=== PATIENT | male | born 1990 | race Caucasian/White ===

== ENCOUNTER 2018-02-24 12:51 | Emergency (ER) | payer SELFPAY ==
--- NOTE | 2018-02-24 14:26 | ER ---
Nurse's Notes [facility] Name: Akhil Serna Age: 27 yrs Sex: Male : 1990 Arrival Date: 02/24/2018 Time: 12:54 Bed 9 Private MD: Diagnosis: Rash and other nonspecific skin eruption Presentation: 02/24 12:55 Transition of care: patient was not received from another setting of care. Onset of sg symptoms was February 24, 2018. Risk Assessment: Do you want to hurt yourself or someone else? Patient reports no desire to harm self or others. Initial Sepsis Screen: Does the patient meet any 2 criteria? No. Patient's initial sepsis screen is negative. Does the patient have a suspected source of infection? No. Patient's initial sepsis screen is negative. Care prior to arrival: None. 12:55 Method Of Arrival: Ambulatory sg 13:07 Presenting complaint: Patient states: Was burning brush, and i think i got into some sg sumac, now i have a red itchy rash in areas all over my body, have been taking benadryl and calamine lotion daily but no relief. 13:07 Acuity: SHIRA 4 sg Historical: - Allergies: 13:03 No Known Allergies; sg - Home Meds: 13:10 None [Active]; sg - PSHx: 13:10 Brain; sg 13:10 Appendectomy; sg - Immunization history:: Adult Immunizations up to date. - Social history:: Smoking status: Patient/guardian denies using tobacco. - Ebola Screening: : Patient negative for fever greater than or equal to 101.5 degrees Fahrenheit, and additional compatible Ebola Virus Disease symptoms Patient denies exposure to infectious person Patient denies travel to an Ebola-affected area in the 21 days before illness onset No symptoms or risks identified at this time. Screenin:43 Abuse screen: Denies threats or abuse. Denies injuries from another. Nutritional iw screening: No deficits noted. Tuberculosis screening: No symptoms or risk factors identified. Fall Risk None identified. Assessment: 13:42 General: Appears in no apparent distress. Behavior is calm, cooperative. Pain: Denies iw pain. Neuro: Level of Consciousness is awake, alert, obeys commands, Oriented to person, place, time, Moves all extremities. Full function. Cardiovascular: Patient's skin is warm and dry. Respiratory: Respiratory effort is even, unlabored, Respiratory pattern is regular, symmetrical. Derm: Rash noted that is itchy, on face, chest, abdomen, right leg and left leg. Musculoskeletal: Range of motion: intact in all extremities. Vital Signs: 13:03 BP 118 / 68; Pulse 59; Resp 17 S; Temp 98.7; Pulse Ox 100% on R/A; Weight 92.99 kg; sg Height 5 ft. 8 in. (172.72 cm); Pain 6/10; 13:03 Body Mass Index 31.17 (92.99 kg, 172.72 cm) ED Course: 12:54 Patient arrived in ED. mr 12:55 Arm band placed on. sg 13:01 Triage completed. sg 13:13 [facility] rh1 13:13 Jann Martinez MD is Attending Physician. rh1 13:24 Adriana Robles RN is Primary Nurse. iw 13:45 Patient has correct armband on for positive identification. iw 14:32 No provider procedures requiring assistance completed. Patient did not have IV access iw during this emergency room visit. Administered Medications: No medications were administered Outcome: 14:25 Discharge ordered by MD. rh1 14:32 Discharged to home ambulatory, with family. iw 14:32 Condition: good 14:32 Discharge instructions given to patient, family, Instructed on discharge instructions, follow up and referral plans. medication usage, Demonstrated understanding of instructions, follow-up care, medications, Prescriptions given X 2. 14:33 Patient left the ED. em Signatures: Jc Verduzco RN RN Anabel Rod, [place], PIERCING MACHINE OPERATOR PIERCING MACHINE OPERATOR em Adriana Robles RN RN iw Rhiannon Mandujano NP SUPERVISOR STITCHING DEPARTMENT rh1 Corrections: (The following items were deleted from the chart) 13:04 12:55 Presenting complaint: Patient states: Left thumb swelling, developed a blister on sg the tip of the thumb under the thumbnail, is blackened that is getting larger sg 13:04 12:55 Acuity: SHIRA 3 [facility] 13:04 13:01 Note Keflex, on day 6 of the treatment [facility] 13:09 13:03 BP 130 / 63; Pulse 87bpm; Resp 16bpm; Pulse Ox 100% RA; Temp 97.7F; 58.97 kg sg Reported; Height 5 ft. 2 in.; BMI: 23.7; Pain 11/04; 13:03 PMHx: Hypertension; sg 13:03 PMHx: Chrons; [facility] 13:03 PMHx: Arthritis; [facility] 13:03 PSHx: Appendectomy; sg sg
--- NOTE | 2018-02-24 14:26 | EDPHYS ---
Physician Documentation [facility] Name: Akhil Serna Age: 27 yrs Sex: Male : 1990 Arrival Date: 02/24/2018 Time: 12:54 Bed 9 Private MD: ED Physician Jann Martinez HPI: 02/24 13:42 This 27 yrs old Male presents to ER via Ambulatory with complaints of Rash. rh1 13:42 The patient's rash thought to be caused by Contact allergy. The rash is located on the rh1 body diffusely. The rash can be described as erythematous, macular. Onset: The symptoms/episode began/occurred 3 day(s) ago. Associated signs and symptoms: Pertinent positives: itching, Pertinent negatives: burning sensation, difficulty breathing, fever, nausea, Pain swelling of lips, swelling of throat, swelling of tongue, vomiting, wheezing. Severity of symptoms: At their worst the symptoms were moderate in the emergency department the symptoms are unchanged. The patient has experienced a previous episode. The patient has not recently seen a physician. Reports he was working at [employer], covered in [employer]. He began with itching between fingers, then right elbow and left eye/face, which has now spread diffusely. He is using OTC benadryl and calamine lotion with minimal relief.. Historical: - Allergies: 13:03 No Known Allergies; sg - Home Meds: 13:10 None [Active]; sg - PSHx: 13:10 Brain; sg 13:10 Appendectomy; sg - Immunization history:: Adult Immunizations up to date. - Social history:: Smoking status: Patient/guardian denies using tobacco. - Ebola Screening: : Patient negative for fever greater than or equal to 101.5 degrees Fahrenheit, and additional compatible Ebola Virus Disease symptoms Patient denies exposure to infectious person Patient denies travel to an Ebola-affected area in the 21 days before illness onset No symptoms or risks identified at this time. ROS: 13:42 Constitutional: Negative for fever rh1 13:42 Cardiovascular: Negative for chest pain. 13:42 Respiratory: Negative for cough, shortness of breath. 13:42 Abdomen/GI: Negative for nausea and vomiting. 13:42 Skin: Positive for rash. 13:42 Neuro: Negative for altered mental status. 13:42 All other systems are negative. Exam: 13:42 Constitutional: This is a well developed, well nourished patient who is awake, alert, rh1 and in no acute distress. Head/Face: Normocephalic, atraumatic. Neck: Trachea midline, and no cervical lymphadenopathy. Supple, full range of motion without nuchal rigidity. No Meningismus. Cardiovascular: Regular rate and rhythm with a normal S1 and S2. No gallops, murmurs, or rubs. No JVD. No pulse deficits. Respiratory: Lungs have equal breath sounds bilaterally, clear to auscultation. No rales, rhonchi or wheezes noted. No increased work of breathing. Abdomen/GI: Soft, non-tender, with normal bowel sounds. No distension. No guarding or rebound. No evidence of tenderness throughout. MS/ Extremity: Pulses equal, no cyanosis. Neurovascular intact. Full, normal range of motion. 13:42 Skin: rash a moderate rash is noted, rash can be described as erythematous, macular, and is diffusely located. 13:42 Neuro: Orientation: is normal, to person, place \T\ time. Mentation: is normal, lucid, able to follow commands, Motor: is normal, moves all fours, Gait: is steady, at a normal pace, without difficulty. Vital Signs: 13:03 BP 118 / 68; Pulse 59; Resp 17 S; Temp 98.7; Pulse Ox 100% on R/A; Weight 92.99 kg; sg Height 5 ft. 8 in. (172.72 cm); Pain 6/10; 13:03 Body Mass Index 31.17 (92.99 kg, 172.72 cm) MDM: 13:42 Patient medically screened. rh1 14:24 Data reviewed: vital signs, nurses notes, and as a result, I will discharge patient. rh1 Data interpreted: Pulse oximetry: on room air is 100 %. Interpretation: normal. Counseling: I had a detailed discussion with the patient and/or guardian regarding: the historical points, exam findings, and any diagnostic results supporting the discharge/admit diagnosis, the need for outpatient follow up, a family practitioner, to return to the emergency department if symptoms worsen or persist or if there are any questions or concerns that arise at home. Administered Medications: No medications were administered Disposition: 18:34 Co-signature as Attending Physician, Jann Martinez MD. Disposition: 09/30/18 14:25 Discharged to Home. Impression: Rash and other nonspecific skin eruption. - Condition is Stable. - Discharge Instructions: Contact Dermatitis, Rash. - Prescriptions for Benadryl 25 mg Oral Capsule - take 1 capsule by ORAL route every 6 hours As needed; 30 tablet. Pepcid 20 mg Oral Tablet - take 1 tablet by ORAL route every 12 hours for 5 days; 10 tablet. Prednisone 20 mg Oral Tablet - take 3 tablet by ORAL route once daily for 5 days; 15 tablet. - Medication Reconciliation Form, Thank You Letter, Antibiotic Education, Prescription Opioid Use form. - Follow up: Private Physician; When: 1 - 2 days; Reason: Recheck today's complaints, Continuance of care, Re-evaluation by your physician. Follow up: Emergency Department; When: As needed; Reason: Fever > 102 F, If symptoms return, Trouble breathing, Worsening of condition. - Problem is new. - Symptoms have improved. Signatures: Jc Verduzco RN RN sg Morro Stock, OVERNIGHT ASSOCIATE OVERNIGHT ASSOCIATE em Rhiannon Mandujano NP SALESPERSON SEWING MACHINES rh1 Jann Martinez MD MD Corrections: (The following items were deleted from the chart) 13:10 13:03 PMHx: Hypertension; sg sg 13:10 13:03 PMHx: Chrons; sg sg 13:10 13:03 PMHx: Arthritis; sg sg 13:10 13:03 PSHx: Appendectomy; sg 14:23 13:42 Reports he was working at [employer], covered in [employer]. He began rh1 with itching between fingers, then right elbow and left eye/face, which has now spread diffusely. . rh1 14:33 14:25 02/24/2018 14:25 Discharged to Home. Impression: Rash and other nonspecific skin em eruption. Condition is Stable. Forms are Medication Reconciliation Form, Thank You Letter, Antibiotic Education, Prescription Opioid Use. Follow up: Private Physician; When: 1 - 2 days; Reason: Recheck today's complaints, Continuance of care, Re-evaluation by your physician. Follow up: Emergency Department; When: As needed; Reason: Fever > 102 F, If symptoms return, Trouble breathing, Worsening of condition. Problem is new. Symptoms have improved. rh1
== END 2018-02-24 14:33 | disposition home or self-care (01) ==
LOC: ER 12:51
DX: R21 Rash and other nonspecific skin eruption (principal)
CPT/HCPCS: 99282

== ENCOUNTER 2018-04-06 15:30 | Emergency (ER) | payer SELFPAY ==
[2018-04-06] MEDS ORDERED: TETANUS & DIPHTHERIA TOX,ADULT 0.5 ML VIAL ONE (16:15)
--- NOTE | 2018-04-06 16:27 | ER ---
Nurse's Notes [facility] Name: Akhil Serna Age: 27 yrs Sex: Male : 1990 Arrival Date: 04/06/2018 Time: 15:33 Bed 13 Private MD: Diagnosis: Cellulitis of left finger-Left Middle Presentation: 04/06 15:54 Presenting complaint: Patient states: "I was working and a crab got my finger about 2 aa5 days ago". Pt c/o redness and swelling to left middle finger. Transition of care: patient was not received from another setting of care. Onset of symptoms was March 2018. Risk Assessment: Do you want to hurt yourself or someone else? Patient reports no desire to harm self or others. Initial Sepsis Screen: Does the patient meet any 2 criteria? No. Patient's initial sepsis screen is negative. Does the patient have a suspected source of infection? No. Patient's initial sepsis screen is negative. Care prior to arrival: None. 15:54 Method Of Arrival: Ambulatory aa5 15:54 Acuity: SHIRA 4 aa5 Historical: - Allergies: 15:55 No Known Allergies; aa5 - PMHx: 15:55 None; aa5 - PSHx: 15:55 Appendectomy; Brain; aa5 - Immunization history:: Last tetanus immunization: unknown. - Social history:: Smoking status: Patient uses tobacco products, smokes one-half pack cigarettes per day. - Ebola Screening: : No symptoms or risks identified at this time. Screenin:24 Abuse screen: Denies threats or abuse. Denies injuries from another. Nutritional aj screening: No deficits noted. Tuberculosis screening: No symptoms or risk factors identified. Fall Risk None identified. Assessment: 16:24 General: Appears in no apparent distress. comfortable, Behavior is calm, cooperative, aj appropriate for age. Pain: Complains of pain in dorsal aspect of middle phalanx of left middle finger. Neuro: Level of Consciousness is awake, alert, obeys commands, Oriented to person, place, time, situation, Appropriate for age. Respiratory: Airway is patent Respiratory effort is even, unlabored, Respiratory pattern is regular, symmetrical. Derm: Skin is intact, is healthy with good turgor, Skin is pink, warm \\T\\ dry. normal, Bruising that is dark purple, on dorsal aspect of middle phalanx of left middle finger. Musculoskeletal: Swelling present in dorsal aspect of middle phalanx of left middle finger. Vital Signs: 15:55 BP 117 / 66; Pulse 60; Resp 18 S; Temp 98.4(TE); Pulse Ox 98% on R/A; Weight 97.98 kg aa5 (R); Height 5 ft. 8 in. (172.72 cm) (R); Pain 3/10; 15:55 Body Mass Index 32.84 (97.98 kg, 172.72 cm) aa5 ED Course: 15:33 Patient arrived in ED. rg4 15:53 Arm band placed on. aa5 15:55 Triage completed. aa5 15:56 Derrick Jarquin PA is PHCP. cp 15:56 Jann Martinez MD is Attending Physician. cp 16:01 Tati Chand, RN is Primary Nurse. aj 16:24 Patient has correct armband on for positive identification. aj 16:24 No provider procedures requiring assistance completed. Patient did not have IV access aj during this emergency room visit. Administered Medications: 16:09 Drug: Tetanus-Diphtheria Toxoid Adult 0.5 ml {Commodity Director: [employer]. Exp: aj 05/15/2020. Lot #: [id number]. } Route: IM; Site: right deltoid; 16:34 Follow up: Response: No adverse reaction aj Outcome: 16:26 Discharge ordered by . cp 16:34 Discharged to home ambulatory, with family. aj 16:34 Condition: good 16:34 Discharge instructions given to patient, Instructed on discharge instructions, follow up and referral plans. medication usage, Demonstrated understanding of instructions, follow-up care, medications, Prescriptions given X 2. 16:35 Patient left the ED. aj Signatures: Tati Chand, RN RN Melonie Streeter RN RN aa5 Derrick Jarquin PA PA cp Garcia, Rubi rg4 Corrections: (The following items were deleted from the chart) 16:28 16:24 Pain: Complains of pain in dorsal aspect of middle phalanx of right middle finger aj and dorsal aspect of proximal phalanx of right middle finger aj 16:28 16:24 Derm: Skin is intact, is healthy with good turgor, Skin is pink, warm \\T\\ dry. aj normal, Bruising that is dark purple, on dorsal aspect of middle phalanx of right middle finger aj 16:28 16:24 Musculoskeletal: Swelling present in dorsal aspect of middle phalanx of right aj middle finger aj
--- NOTE | 2018-04-06 16:27 | EDPHYS ---
Physician Documentation [facility] Name: Akhil Serna Age: 27 yrs Sex: Male : 1990 Arrival Date: 04/06/2018 Time: 15:33 Bed 13 Private MD: ED Physician Jann Martinez HPI: 04/06 16:06 This 27 yrs old Male presents to ER via Ambulatory with complaints of Finger cp Injury. 16:06 The patient or guardian reports injury, pain, swelling, tenderness. The complaints cp affect the dorsal aspect middle phalanx right middle finger. Context: resulted from claw of crab. Onset: The symptoms/episode began/occurred 2 day(s) ago. Associated signs and symptoms: Pertinent negatives: cyanosis distally, fever, numbness distally. Severity of symptoms: in the emergency department the symptoms are actually worse. Historical: - Allergies: 15:55 No Known Allergies; aa5 - PMHx: 15:55 None; aa5 - PSHx: 15:55 Appendectomy; Brain; aa5 - Immunization history:: Last tetanus immunization: unknown. - Social history:: Smoking status: Patient uses tobacco products, smokes one-half pack cigarettes per day. - Ebola Screening: : No symptoms or risks identified at this time. ROS: 16:12 Eyes: Negative for injury, pain, redness, and discharge. cp 16:12 Constitutional: Negative for body aches, chills, fever, poor PO intake. 16:12 ENT: Negative for drainage from ear(s), ear pain, sore throat, difficulty swallowing, difficulty handling secretions. 16:12 Cardiovascular: Negative for chest pain, palpitations. 16:12 Respiratory: Negative for cough, shortness of breath, wheezing. 16:12 Abdomen/GI: Negative for abdominal pain, nausea, vomiting, and diarrhea, constipation, black/tarry stool, rectal bleeding. 16:12 Neuro: Negative for numbness, tingling. 16:12 All other systems are negative. Exam: 16:15 Head/Face: Normocephalic, atraumatic. cp 16:15 Constitutional: The patient appears in no acute distress, alert, awake, non-toxic, well developed, well nourished. 16:15 Eyes: Periorbital structures: appear normal, Conjunctiva: normal, no exudate, no injection, Sclera: no appreciated abnormality, Lids and lashes: appear normal, bilaterally. 16:15 ENT: External ear(s): are unremarkable, Nose: is normal, Mouth: is normal, Posterior pharynx: is normal. 16:15 Chest/axilla: Inspection: normal. 16:15 Cardiovascular: Rate: normal. 16:15 Respiratory: the patient does not display signs of respiratory distress, Respirations: normal, no use of accessory muscles, no retractions, no splinting, no tachypnea. 16:15 Abdomen/GI: Inspection: abdomen appears normal. Vital Signs: 15:55 BP 117 / 66; Pulse 60; Resp 18 S; Temp 98.4(TE); Pulse Ox 98% on R/A; Weight 97.98 kg aa5 (R); Height 5 ft. 8 in. (172.72 cm) (R); Pain 3/10; 15:55 Body Mass Index 32.84 (97.98 kg, 172.72 cm) aa5 MDM: 15:57 Patient medically screened. cp 16:20 Differential diagnosis: tendonitis, cellulitis, abscess. cp 16:25 Data reviewed: vital signs, nurses notes, and as a result, I will discharge patient. cp 16:25 Counseling: I had a detailed discussion with the patient and/or guardian regarding: the cp historical points, exam findings, and any diagnostic results supporting the discharge/admit diagnosis, the need for outpatient follow up, a family practitioner, to return to the emergency department if symptoms worsen or persist or if there are any questions or concerns that arise at home. Administered Medications: 16:09 Drug: Tetanus-Diphtheria Toxoid Adult 0.5 ml {Res Counselor: [employer]. Exp: aj 05/15/2020. Lot #: [id number]. } Route: IM; Site: right deltoid; 16:34 Follow up: Response: No adverse reaction kenney Disposition: 04/07 11:41 Co-signature as Attending Physician, Jann Martinez MD. thang Disposition: 04/06/18 16:26 Discharged to Home. Impression: Cellulitis of left finger - Left Middle. - Condition is Stable. - Discharge Instructions: Cellulitis, Adult. - Prescriptions for Bactrim DS 800- 160 mg Oral Tablet - take 1 tablet by ORAL route every 12 hours for 10 days; 20 tablet. Doxycycline Monohydrate 100 mg Oral Tablet - take 1 tablet by ORAL route every 12 hours for 10 days; 20 tablet. - Medication Reconciliation Form, Thank You Letter, Antibiotic Education, Prescription Opioid Use form. - Follow up: Private Physician; When: 2 - 3 days; Reason: Wound Recheck. Signatures: Tati Chand RN Melonie Brunner RN RN aa5 Derrick Jarquin PA PA cp Jann Martinez MD MD gs Corrections: (The following items were deleted from the chart) 04/06 16:24 16:15 Musculoskeletal/extremity: Extremities: grossly normal except: noted in the cp dorsal aspect middle phalanx left middle finger: erythema, pain, swelling, noted superficial wound, There is no evidence of decreased ROM, drainage, ROM: intact distally right middle finger, Perfusion: the extremity is normally perfused throughout, Sensation intact. cp 16:25 16:12 Skin: Positive for discoloration, erythema, swelling, of the dorsal aspect middle cp phalanx right middle finger, Negative for abscesses, cp 16:35 16:26 04/06/2018 16:26 Discharged to Home. Impression: Cellulitis of left finger - Left aj Middle. Condition is Stable. Forms are Medication Reconciliation Form, Thank You Letter, Antibiotic Education, Prescription Opioid Use. Follow up: Private Physician; When: 2 - 3 days; Reason: Wound Recheck. cp
== END 2018-04-06 16:35 | disposition home or self-care (01) ==
LOC: ER 15:30
DX: L03.012 Cellulitis of left finger (principal); Z23 Encounter for immunization; X58.XXXA Exposure to other specified factors, initial encounter; F17.210 Nicotine dependence, cigarettes, uncomplicated
CPT/HCPCS: 90714; 99283

== ENCOUNTER 2018-04-08 19:37 | Emergency (ER) | payer SELFPAY ==
[2018-04-08] MEDS ORDERED: NA CHLORIDE 0.9% 1,000 ML ONE (20:45)
[2018-04-08] MEDS ORDERED: VANCOMYCIN 1 GM/250 ML BAG ONE (20:46)
--- NOTE | 2018-04-08 20:49 | RAD REPORT ---
EXAM DESCRIPTION: RAD - Hand Left 2 View - 04/08/2018 8:41 pm CLINICAL HISTORY: Left hand pain status post injury FINDINGS: No fracture or dislocation is seen. A limited two-view series was obtained
[2018-04-08 21:11] LABS: Potassium 3.7 mmol/L (3.5-5.1)
[2018-04-08 21:37] LABS: Absolute Lymphocytes (CBC) 2.6 K/uL (0.7-4.9); Absolute Monocytes 0.8 K/uL (0.1-1.3); Absolute Neutrophil 4.5 K/uL (1.8-8.0); Basophils % 0.9 % (0-1.3); Eosinophils % 2.7 % (0-4.4); Hematocrit 45.4 % (39.6-49.0); Lymphocytes % 31.6 % (15.3-44.8); MCH 30.9 pg (27.0-35.0); MCV 90.8 fL (80-100); MPV 8.7 fL (7.6-11.3); Monocytes % 9.9 % (3.3-12.3)
--- NOTE | 2018-04-08 23:08 | ER ---
Nurse's Notes [facility] Name: Akhil Serna Age: 27 yrs Sex: Male : 1990 Arrival Date: 04/08/2018 Time: 19:39 Bed 7 Private MD: Diagnosis: Cellulitis of left finger Presentation: 04/08 19:46 Presenting complaint: Patient states: He was seen here on Sunday because he had been aj1 pinched by a crab, and the area was red and swollen. He got a tetanus shot and 2 antibiotics. Yesterday he noticed a "blood blister" form on the finger and was concerned. Left middle finger appears red and swollen. Transition of care: patient was not received from another setting of care. Onset of symptoms was April 08, 2018. Risk Assessment: Do you want to hurt yourself or someone else? Patient reports no desire to harm self or others. Initial Sepsis Screen: Does the patient meet any 2 criteria? No. Patient's initial sepsis screen is negative. Does the patient have a suspected source of infection? Yes: Skin breakdown/wound. Care prior to arrival: None. 19:46 Method Of Arrival: [facility] 19:46 Acuity: SHIRA 3 aj1 Triage Assessment: 19:48 General: Appears in no apparent distress. comfortable, Behavior is calm, cooperative, aj1 appropriate for age. Pain: Complains of pain in left hand Pain currently is 4 out of 10 on a pain scale. Neuro: Level of Consciousness is awake, alert, obeys commands. Cardiovascular: Patient's skin is warm and dry. Respiratory: Airway is patent Respiratory effort is even, unlabored, Respiratory pattern is regular, symmetrical. Musculoskeletal: Range of motion: limited in DIP of left middle finger, PIP of left middle finger and MCP of left middle finger Swelling present in dorsal aspect of distal phalanx of left middle finger, dorsal aspect of middle phalanx of left middle finger, dorsal aspect of proximal phalanx of left middle finger, palmar aspect of distal phalanx of left middle finger, palmar aspect of middle phalanx of left middle finger and palmar aspect of proximal phalanx of left middle finger. Injury Description: Patient got pinched by a crab. Historical: - Allergies: 19:48 No Known Allergies; aj1 - Home Meds: 19:48 None [Active]; aj1 - PMHx: 19:48 None; aj1 - PSHx: 19:48 None; aj1 - Immunization history:: Last tetanus immunization: up to date. - Social history:: Smoking status: Patient uses tobacco products, smokes one-half pack cigarettes per day. - Ebola Screening: : Patient denies travel to an Ebola-affected area in the 21 days before illness onset. Screenin:00 Abuse screen: Denies threats or abuse. Denies injuries from another. Nutritional ak1 screening: No deficits noted. Tuberculosis screening: No symptoms or risk factors identified. Fall Risk None identified. Assessment: 20:02 Reassessment: Patient appears in no apparent distress at this time. No changes from ak1 previously documented assessment. see triage assessment. Vital Signs: 19:48 BP 122 / 54; Pulse 69; Resp 18; Temp 98.0; Pulse Ox 98% on R/A; Weight 97.98 kg (R); aj1 Height 5 ft. 8 in. (172.72 cm); Pain 4/10; 22:08 BP 115 / 59; Pulse 67; Resp 18; Pulse Ox 98% on R/A; mw2 19:48 Body Mass Index 32.84 (97.98 kg, 172.72 cm) aj1 ED Course: 19:39 Patient arrived in ED. al2 19:48 Triage completed. aj1 19:48 Arm band placed on. aj1 19:52 Cordelia Deluca FNP-C [facility]. snw 19:52 Derrick Hills MD is Attending Physician. snw 19:55 Renay Garza, JORGE LUIS is Primary Nurse. ak1 20:01 Patient has correct armband on for positive identification. Bed in low position. Call ak1 light in reach. Side rails up X 1. 20:42 Hand Left 2 View XRAY In Process Unspecified. EDMS 20:44 Inserted saline lock: 22 gauge in right antecubital area, using aseptic technique. mw2 Blood collected. 23:07 Howie Adler MD is Referral Physician. snw 23:22 No provider procedures requiring assistance completed. IV discontinued, intact, ak1 bleeding controlled, No redness/swelling at site. Pressure dressing applied. Administered Medications: 20:48 Drug: NS 0.9% 1000 ml Route: IV; Rate: 125 ml/hr; Site: right antecubital; ak1 23:10 Follow up: IV Status: Order to discontinue infusion; pt discharged ak1 20:49 Drug: vancoMYCIN 1 grams Route: IVPB; Infused Over: 2 hrs; Site: right antecubital; ak1 22:47 Follow up: IV Status: Completed infusion ak1 Intake: Outcome: 23:07 Discharge ordered by . janice 23:22 Discharged to home ambulatory, with family. ak1 23:22 Condition: good 23:22 Discharge instructions given to patient, family, Instructed on discharge instructions, follow up and referral plans. Demonstrated understanding of instructions, follow-up care. 23:22 Patient left the ED. ak1 Signatures: Dispatcher [employer] EDKatie Newby RN RN Cordelia Torres, SCRAPE GATHERER-C SCRAPE GATHERER-Csnw Renay Garza RN RN ak1 Zohreh Montiel MyKena mw2
--- NOTE | 2018-04-08 23:08 | EDPHYS ---
Physician Documentation [facility] Name: Akhil Serna Age: 27 yrs Sex: Male : 1990 Arrival Date: 04/08/2018 Time: 19:39 Bed 7 Private MD: ED Physician Derrick Hills HPI: 04/08 23:05 This 27 yrs old Male presents to ER via Ambulatory with complaints of Finger snw Injury. 23:05 The patient or guardian reports a rash, swelling, tenderness. The complaints affect the snw dorsal aspect of middle phalanx of left middle finger. Context: resulted from Crab pincher. Onset: The symptoms/episode began/occurred 3 day(s) ago, and became worse today. Associated signs and symptoms: Pertinent positives: increased swelling and blister formation. Severity of symptoms: At their worst the symptoms were moderate, severe. The patient has not experienced similar symptoms in the past. The patient has been recently seen by a physician: The patient has been recently seen at the [facility] Emergency Department, this week, for similar complaints was given a prescription for antibiotics. Historical: - Allergies: 19:48 No Known Allergies; aj1 - Home Meds: 19:48 None [Active]; aj1 - PMHx: 19:48 None; aj1 - PSHx: 19:48 None; aj1 - Immunization history:: Last tetanus immunization: up to date. - Social history:: Smoking status: Patient uses tobacco products, smokes one-half pack cigarettes per day. - Ebola Screening: : Patient denies travel to an Ebola-affected area in the 21 days before illness onset. ROS: 23:04 Constitutional: Negative for fever, chills, and weight loss, Eyes: Negative for injury, snw pain, redness, and discharge, ENT: Negative for injury, pain, and discharge, Neck: Negative for injury, pain, and swelling, Cardiovascular: Negative for chest pain, palpitations, and edema, Respiratory: Negative for shortness of breath, cough, wheezing, and pleuritic chest pain, Abdomen/GI: Negative for abdominal pain, nausea, vomiting, diarrhea, and constipation, Back: Negative for injury and pain, : Negative for injury, bleeding, discharge, and swelling, MS/Extremity: Negative for injury and deformity, Neuro: Negative for headache, weakness, numbness, tingling, and seizure, Psych: Negative for depression, anxiety, suicide ideation, homicidal ideation, and hallucinations. 23:04 Skin: Positive for cellulitis, seems to be worsening, taking Doxy and Bactrim. Exam: 23:02 Constitutional: This is a well developed, well nourished patient who is awake, alert, snw and in no acute distress. Head/Face: Normocephalic, atraumatic. Eyes: Pupils equal round and reactive to light, extra-ocular motions intact. Lids and lashes normal. Conjunctiva and sclera are non-icteric and not injected. Cornea within normal limits. Periorbital areas with no swelling, redness, or edema. ENT: Nares patent. No nasal discharge, no septal abnormalities noted. Tympanic membranes are normal and external auditory canals are clear. Oropharynx with no redness, swelling, or masses, exudates, or evidence of obstruction, uvula midline. Mucous membranes moist. Neck: Trachea midline, no thyromegaly or masses palpated, and no cervical lymphadenopathy. Supple, full range of motion without nuchal rigidity, or vertebral point tenderness. No Meningismus. Chest/axilla: Normal chest wall appearance and motion. Nontender with no deformity. No lesions are appreciated. Cardiovascular: Regular rate and rhythm with a normal S1 and S2. No gallops, murmurs, or rubs. Normal PMI, no JVD. No pulse deficits. Respiratory: Lungs have equal breath sounds bilaterally, clear to auscultation and percussion. No rales, rhonchi or wheezes noted. No increased work of breathing, no retractions or nasal flaring. Abdomen/GI: Soft, non-tender, with normal bowel sounds. No distension or tympany. No guarding or rebound. No evidence of tenderness throughout. Back: No spinal tenderness. No costovertebral tenderness. Full range of motion. MS/ Extremity: Pulses equal, no cyanosis. Neurovascular intact. Full, normal range of motion. Neuro: Awake and alert, GCS 15, oriented to person, place, time, and situation. Cranial nerves II-XII grossly intact. Motor strength 5/5 in all extremities. Sensory grossly intact. Cerebellar exam normal. Normal gait. Psych: Awake, alert, with orientation to person, place and time. Behavior, mood, and affect are within normal limits. 23:02 Skin: Appearance: normal except for affected area, cellulitis, that is moderate, well demarcated, on the dorsal aspect of middle phalanx of left middle finger, bullae with serosanguinous fluid, aspirated in ED and sent for culture, dorsum of left middle finger left middle phalanx with erythema, + ROM, + edema, mild erythema extending proximally to mid dorsal hand. Vital Signs: 19:48 BP 122 / 54; Pulse 69; Resp 18; Temp 98.0; Pulse Ox 98% on R/A; Weight 97.98 kg (R); aj1 Height 5 ft. 8 in. (172.72 cm); Pain 4/10; 22:08 BP 115 / 59; Pulse 67; Resp 18; Pulse Ox 98% on R/A; mw2 19:48 Body Mass Index 32.84 (97.98 kg, 172.72 cm) aj1 Procedures: 20:43 wound culture obtained post aspirating bullae/vesicle. snw MDM: 19:54 Patient medically screened. lucio 19:59 Patient medically screened. snw 23:07 Data reviewed: vital signs, nurses notes. Data interpreted: Pulse oximetry: on room air snw is 98 %. Interpretation: normal. Counseling: I had a detailed discussion with the patient and/or guardian regarding: the historical points, exam findings, and any diagnostic results supporting the discharge/admit diagnosis, lab results, radiology results, the need for outpatient follow up, to return to the emergency department if symptoms worsen or persist or if there are any questions or concerns that arise at home. Special discussion: Based on the history and exam findings, there is no indication for further emergent testing or inpatient evaluation. I discussed with the patient/guardian the need to see the hand specialist for further evaluation of the symptoms. I discussed with the patient/guardian the need to see the primary care provider for further evaluation of the symptoms. 04/08 20:13 Order name: CBC with Diff; Complete Time: 22:10 snw 04/08 20:13 Order name: Sed Rate; Complete Time: 22:10 snw 04/08 20:13 Order name: Chem 7; Complete Time: 21:13 snw 04/08 20:13 Order name: Hand Left 2 View XRAY; Complete Time: 20:53 snw 04/08 20:13 Order name: Blood Culture* snw 04/08 20:13 Order name: Wound Culture snw 04/08 22:42 Order name: Wound dressing; Complete Time: 23:10 snw Administered Medications: 20:48 Drug: NS 0.9% 1000 ml Route: IV; Rate: 125 ml/hr; Site: right antecubital; ak1 23:10 Follow up: IV Status: Order to discontinue infusion; pt discharged ak1 20:49 Drug: vancoMYCIN 1 grams Route: IVPB; Infused Over: 2 hrs; Site: right antecubital; ak1 22:47 Follow up: IV Status: Completed infusion ak1 Disposition: 04/09 07:06 Co-signature as Attending Physician, Derrick Hills MD I agree with the assessment and lucio plan of care. Disposition: 04/08/18 23:07 Discharged to Home. Impression: Cellulitis of left finger. - Condition is Stable. - Discharge Instructions: Cellulitis, Adult, Wound Infection, Wound Care. - Work release form, Medication Reconciliation Form, Thank You Letter, Antibiotic Education, Prescription Opioid Use form. - Follow up: Private Physician; When: 2 - 3 days; Reason: Recheck today's complaints, Continuance of care, Re-evaluation by your physician. Follow up: Howie Adler; When: 1 week; Reason: Recheck today's complaints, Continuance of care. Follow up: Emergency Department; When: As needed; Reason: Worsening of condition. - Notes: Please continue current antibiotics Signatures: Dispatcher [employer] Katie Chang RN RN aj1 Derrick Hills MD MD cha Therrien, Shelly, MANAGER OF FINANCIAL-C MANAGER OF FINANCIAL-Csnw Renay Garza RN RN ak1 Corrections: (The following items were deleted from the chart) 04/08 23:22 23:07 04/08/2018 23:07 Discharged to Home. Impression: Cellulitis of left finger. ak1 Condition is Stable. Discharge Instructions: Cellulitis, Adult, Wound Infection, Wound Care. Forms are Work release form, Medication Reconciliation Form, Thank You Letter, Antibiotic Education, Prescription Opioid Use. Follow up: Private Physician; When: 2 - 3 days; Reason: Recheck today's complaints, Continuance of care, Re-evaluation by your physician. Follow up: Howie Adler; When: 1 week; Reason: Recheck today's complaints, Continuance of care. Follow up: Emergency Department; When: As needed; Reason: Worsening of condition. snw
== END 2018-04-08 23:22 | disposition home or self-care (01) ==
LOC: ER 19:37
PROC: 0H9GXZX Drainage of Left Hand Skin, External Approach, Diagnostic (ICD-10-PCS; principal; 2018-04-08)
DX: L03.012 Cellulitis of left finger (principal); X58.XXXA Exposure to other specified factors, initial encounter
CPT/HCPCS: 36415; 80048; 85025; 85652; 87040; 87070; 87205; 96365; 96366; 99284; J3370; J7030